=== PATIENT | male | born 1970 | race Two or more races ===

== ENCOUNTER 2018-02-07 20:02 | Emergency (ER) | payer OTHER ==
[~2018-02-07] VITALS: Ht 162.6 cm; Wt 106.3 kg
[2018-02-07 20:04] VITALS: BP 158/85
[2018-02-07] MEDS ORDERED: PROPARACAINE OPHTH 0.5%, 15ML EACHEYE ONE (20:30)
[2018-02-07] MEDS ORDERED: PROPARACAINE OPHTH 0.5%, 15ML ONE (20:31)
== END 2018-02-07 21:13 | disposition home or self-care (01) ==
LOC: ED 21:05
DX: S05.01XA Injury of conjunctiva and corneal abrasion without foreign body, right eye, initial encounter (principal); X08.8XXA Exposure to other specified smoke, fire and flames, initial encounter; Y93.89 Activity, other specified; Y92.89 Other specified places as the place of occurrence of the external cause; Y99.8 Other external cause status
CPT/HCPCS: 99283